=== PATIENT | female | born 1955 | race Caucasian/White ===

== ENCOUNTER → 2017-02-20 | Day surgery (SDC) | payer MEDICAID ==
[~2017-02-20] MED LIST: Lidocaine Hydrochloride 5 ML INJ ONE; Propofol 10 mg/ml Inj (20 ML) ONE
[2017-02-20 10:46] VITALS: BMI 29.8
[2017-02-20 12:33] VITALS: O2SAT 100
[2017-02-20 13:21] VITALS: TEMP 97.1
[2017-02-20 14:10] VITALS: BP 134/71; PULSE 52; RESP 19
== END | disposition home or self-care (01) ==
LOC: C.ENDO 10:08
PROVIDERS: ATTEND Internal Medicine
DX: D50.9 Iron deficiency anemia, unspecified (principal); Z53.09 Procedure and treatment not carried out because of other contraindication; K64.8 Other hemorrhoids; K29.70 Gastritis, unspecified, without bleeding; K44.9 Diaphragmatic hernia without obstruction or gangrene
CPT/HCPCS: 43239; 45378; 88305; J2704

== ENCOUNTER 2017-03-10 09:58 | Day surgery (SDC) | payer MEDICAID ==
[2017-02-20 10:46] VITALS: BMI 29.8
[2017-03-10] MEDS ORDERED: Lactated Ringer's 500 ML IV ONE (11:51)
[2017-03-10] MEDS ORDERED: Midazolam 2 MG/2 ML VIAL ONE (12:00)
[2017-03-10] MEDS ORDERED: Propofol 10 mg/ml Inj (20 ML) ONE (12:00)
[2017-03-10 12:11] VITALS: O2SAT 100
[2017-03-10 12:51] VITALS: TEMP 98.2
[2017-03-10 12:56] VITALS: PULSE 52
[2017-03-10 13:30] VITALS: BP 142/70; RESP 14
== END 2017-03-10 13:30 | disposition home or self-care (01) ==
LOC: C.ENDO 09:58
PROVIDERS: ATTEND Internal Medicine
DX: D50.9 Iron deficiency anemia, unspecified (principal); K59.09 Other constipation; D12.0 Benign neoplasm of cecum; D12.3 Benign neoplasm of transverse colon; K62.89 Other specified diseases of anus and rectum; K51.90 Ulcerative colitis, unspecified, without complications
CPT/HCPCS: 45380; 88305; J2250; J2704; J7120